=== PATIENT | female | born 1990 | race Two or more races ===

== ENCOUNTER 2017-02-12 22:26 | Emergency (ER) | payer MEDICAID ==
[~2017-02-12] VITALS: Ht 149.9 cm; Wt 49.9 kg
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
--- NOTE | 2017-02-13 00:41 | NUR ---
ynes terrell at bedside to deisi sparrow.
[2017-02-13] MEDS ORDERED: IBUPROFEN 400 MG TABLET PO ONE (01:00)
[2017-02-13] MEDS ORDERED: IBUPROFEN 400 MG TABLET ONE (01:02)
--- NOTE | 2017-02-13 01:38 | NUR ---
Patient discharged to home in stable condition. Written and verbal after care instructions given. Patient verbalizes understanding of instruction.
[2017-02-13 01:39] VITALS: BP 116/63
== END 2017-02-13 01:39 | disposition home or self-care (01) ==
LOC: ER 22:26
DX: S93.402A Sprain of unspecified ligament of left ankle, initial encounter (principal); S20.219A Contusion of unspecified front wall of thorax, initial encounter; V49.59XA Passenger injured in collision with other motor vehicles in traffic accident, initial encounter; Y93.89 Activity, other specified; Y92.410 Unspecified street and highway as the place of occurrence of the external cause; Y99.8 Other external cause status
CPT/HCPCS: 73610; 99284; A4606; Z7610